=== PATIENT | female | born 1950 | race Hispanic/Latino ===

== ENCOUNTER 2018-10-07 10:26 | Emergency (ER) | payer OTHER ==
[~2018-10-07] VITALS: Ht 157.5 cm; Wt 73.5 kg
[~2018-10-07 10:26] MED LIST: METOPROLOL SUCC25 MG PO; TRIAMTERENE-HCTZ1 EA PO
== END 2018-10-07 10:45 | disposition home or self-care (01) ==
LOC: FSED 10:26
DX: R05 Cough (principal); J00 Acute nasopharyngitis [common cold]; I10 Essential (primary) hypertension; E11.9 Type 2 diabetes mellitus without complications
CPT/HCPCS: 99283